=== PATIENT | male | born 1965 | race Caucasian/White ===

== ENCOUNTER 2021-05-21 21:12 | Inpatient (IN) | payer BC, SELFPAY ==
[2021-05-21] VITALS (61 sets, daily range): BP systolic 129–155; BP diastolic 72–99; PULSE 80–108; RESP 8–44; TEMP 36.8–41.3; O2SAT 88–94; BMI 29.7
--- NOTE | 2021-05-21 17:07 | PC.NURSE ---
Pt lying in bed with hob at 45 degree. Pt had no c/o pain or discomfort. Pts IV patent no redness or swelling noted IV fluids NS at 250cc/hr. Call light in reach.
[2021-05-21] MEDS: ondansetron 2 mg/ML SDV 2 mL 4 MG IVP (19:02)
[2021-05-21] MEDS: acetaminophen 325 mg Tablet 650 MG PO (19:31)
[2021-05-21 21:03] LABS: Glucose Point of Care 104 mg/dL (70-110)
--- NOTE | 2021-05-21 21:18 | XR_ITS ---
WS: [id number] Exam: XR chest 1V portable [id number] Date/Time of Exam: 05/21/2021 9:26 PM Reason For Exam: sob Comparison 01/13/2014. Mild groundglass infiltrate in the right lower lobe suspicious for pneumonia. Chronic interstitial ch anges noted bilaterally. The lungs are fully expanded. No pleural effusions. Normal cardiomediastinal silhouette and regional bony elements. Monitoring leads superimpose the chest. XR/XR chest 1V portable [id number] IMPRESSION: 1. Mild groundglass infiltrate in the right lower lobe suspicious for pneumonia . Chronic interstitial changes.
--- NOTE | 2021-05-21 21:20 | ECG_ITS ---
[facility] Test Date: 2021-05-21 Pat Name: Basilio Moody Department: Room: 107 Gender: Male Bpm Analyst: : 1965 Requested By: Geo Hall Order Number: [id number] Omi MD: Rashmi Liu M.D. Measurements Intervals [place] Rate: 86 P: 45 WV: 170 QRS: 80 QRSD: 96 T: 11 QT: 380 QTc: 457 Interpretive Statements SINUS RHYTHM POSSIBLE LEFT ATRIAL ENLARGEMENT [-0.1mV P WAVE IN V1/V2] SEPTAL MYOCARDIAL INFARCTION , PROBABLY OLD [40+ ms Q WAVE IN V1/V2] No previous ECG available for comparison Electronically Signed On 05-22-2021 21:53:57 GRAVEDIGGER by Rashmi Liu M.D. [id number]
--- NOTE | 2021-05-21 21:27 | P.HP_ITS ---
Providers/Chief Complaint Admitting Physician: Geo Hall MD Primary Care Provider: Thai Rangel MD Chief Complaint: covid 19 History of Present Illness Basilio Moody is a 56 year old male with a past medical history of insulin- dependent type 2 diabetes mellitus, CAD status post stenting in 2005,, hypertension, no history of CHF, no history of COPD, history of smoking, no h istory of stroke, who presents to [facility] due to fatigue, malaise, high fevers, nonproductive cough. Patient tells me that last Friday he started to feel fatigue, malaise, high fevers, nonproductive cough, he presented to his primary care provider and was given antibiotics and inhaler therapy. However continued to have symptomatology, tested positive for Covid on Friday, continue to have symptomatology, with high fevers, fatigue, malaise, also reported shortness of breath with exertion. Patient was scheduled to have a monoclonal infusion this afternoon, I was called to see patient in monoclonal infusion suite as he was not feeling well, was feeling nauseous. During my examination, he was complaining of fatigue, malaise, some nausea, no shortness of breath, feeling hot, he looks clinically dehydrated, so advised nursing staff that he should receive a 250 cc bolus of fluids. I was told that the fluid bolus could not be given in the monoclonal suite, so he would have to be moved to an outpatient bed, patient was moved to CSU, I reexamined patient in the CSU twice, as he was receiving 250 cc bolus, he was feels a bit better, had some nausea, was given Zofran, also had a temperature of 100.8. I was advised through nursing staff that patient continued to not feel well, I reexamined patient ate early in the evening, he tells me that he is not feeling well, ever nues to feel nauseous, he is having high fevers, temp as high as 106.8 axillary had forehead, was given 650 of Tylenol, fever has been broken down to 99.8 according to nursing staff. Denies any lip swelling, no tongue swelling, no new rashes, no headache, blurry vision, alert oriented x3, is at bedside, not requiring any oxygen. Blood pressure 155/81, pulse 94, respiratory 20, saturating in the high 90s. I discussed with yard warehouse worker my concerns, I feel patient would require rapid triage given my concerns for COVID-19 pneumonia, possible allergic reaction to monoclonal infusion. I was told that as patient was admitted under outpatient lab, was on the floors, he would have to be admitted under the hospitalist service. Thus I reexamined patient, I will have hospitalist service tonight take a look at labs, further imaging, continue to monitor patient clinically. Review of Systems Const: Reports: fever(s), chills, body aches, fatigue and malaise Eyes: Denies: change in vision or blurry vision ENMT: Reports: nasal congestion Card: Reports: lightheadedness; Denies: chest pain Resp: Reports: dyspnea and non-productive cough; Denies: productive cough or wheezing GI: Reports: nausea; Denies: abdominal pain, vomiting, hematemesis, diarrhea, constipation, hematochezia or melena : Denies: flank pain, difficulty urinating, dysuria or urinary frequency Musc: Denies: neck pain or back pain Skin/Breast: Denies: rash Neuro: Denies: headache(s), dizziness or vertigo Psych: Denies: anxiety or depression Endo: Denies: polyuria or polydipsia Medications/Allergies Home Medications Medication Instructions Recorded Confirmed Last Taken Type aspirin 325 mg PO DAILY 05/21/21 05/21/21 05/20/21 History atenolol 25 mg PO DAILY 05/21/21 05/21/21 05/20/21 History empagliflozin [Jardiance] 25 mg PO DAILY 05/21/21 05/21/21 05/21/21 History gemfibrozil 600 mg PO BID 05/21/21 05/21/21 05/21/21 History insulin glargine U-300 conc 60 unit SUBCUT DAILY 05/21/21 05/21/21 05/20/21 History [Toujeo SoloStar U-300 Insulin] insulin lispro [Humalog U-100 5 unit SUBCUT TID 05/21/21 05/21/21 05/20/21 History Insulin] losartan 25 mg PO DAILY 05/21/21 05/21/21 05/21/21 History metformin 1,000 mg PO BID 05/21/21 05/21/21 05/21/21 History Allergies Allergy/AdvReac Type Severity Reaction Status Date / Time isosorbide [From Imdur] Allergy ADR-Headach Verified 05/21/21 14:39 e PFSH Acute PFSH: Medical History (Updated 05/21/21 @ 21:38 by Geo Hall MD) Diabetes mellitus History of hypertension Surgical History (Updated 05/21/21 @ 21:36 by Geo Hall MD) History of cholecystectomy History of lumbar surgery Hx of heart artery stent Hx of hernia repair Family History (Updated 05/21/21 @ 21:37 by Geo Hall MD) Mother CAD (coronary artery disease) Social History (Updated 05/21/21 @ 21:37 by Geo Hall MD) Smoking and tobacco status: never smoked Alcohol intake: never Substance/Drug Use: never Vitals/I&O/Wt Last Vital Signs Temp 104.3 F H 05/21/21 19:34 Pulse 94 05/21/21 19:32 Resp 39 H 05/21/21 19:32 BP 155/81 05/21/21 19:32 Pulse Ox 88 L 05/21/21 19:32 05/21/21 05/21/21 05/21/21 06:59 14:59 22:59 Intake Total 110 / 110 Balance 110 / 110 Weight last 48 hrs Weight 102.058 kg Physical Exam Const: COMMON NORMALS: no acute distress and patient oriented x3 GENERAL APPEARANCE: cooperative and comfortable HENMT: COMMON NORMALS: normocephalic HEAD & SCALP: normocephalic Eye: COMMON NORMALS: Equal, round and reactive pupils present and EOMs intact bilaterally GENERAL EYE: appearance normal, both eyes and all related structures PUPIL: Yes Equal, round and reactive pupils present Neck/C-Spine: COMMON NORMALS: full ROM and no lymphadenopathy THYROID: Thyroid normal Lymph: LYMPHATIC: no lymphadenopathy noted Resp: COMMON NORMALS: normal respiratory effort, No retractions, No use of accessory muscles and clear to auscultation bilaterally AUSCULTATION: clear to auscultation bilaterally Cardio: COMMON NORMALS: no JVD, regular rate, regular rhythm, S1 normal heart sound present, S2 normal heart sound present, No gallops present (Cardio), No clicks present (Cardio) and No murmurs present (Cardio) RATE: regular rate RHYTHM: regular rhythm HEART SOUNDS: S1 normal heart sound present and S2 normal heart sound present GI: COMMON NORMALS: Normal to inspection, nondistended, normoactive bowel sounds present, Soft to palpation, non-tender and No hepatosplenomegaly present PALPATION: Yes Soft to palpation and Yes No hepatosplenomegaly present Extremity: COMMON NORMALS: normal to inspection, full ROM and no pedal edema Neuro: COMMON NORMALS: patient oriented x3, CN's II-XII intact bilaterally, moves all extremities and no focal motor deficits Psych: COMMON NORMALS: mental status grossly normal, Normal thought process present and cooperative THOUGHT PROCESS: Normal thought process present A&P Assessment and plan (1) COVID-19: -COVID-19 Plan: -Repeat Covid PCR, rapid antigen -We will obtain rapid flu -Blood cultures, sputum cultures, urine bacterial antigens -Decadron -For now hold off on remdesivir as not requiring oxygen, will await ABG, chest x-ray -Respiratory evaluation -Oxygen therapy as needed -Budesonide, ipratropium -CBC, CMP, pro-Shaheen, CRP, mag, Phos, ABG, chest x-ray, blood cultures -Tylenol and ibuprofen for fevers, ice packs -Monitor mentation closely Allergic reaction, possible allergic reaction monoclonal infusion, no lip swelling, no tongue swelling, no rash, but does have high-grade fevers, Decadron will suffice as above, Benadryl as needed, continue to monitor clinically Type 2 diabetes mellitus, Levemir 10 units at bedtime, low-dose sliding scale Dehydration, IV fluids Status: Acute (2) Febrile illness: Status: Acute (3) Allergic reaction: Status: Acute (4) Dehydration: Status: Acute (5) Diabetes mellitus: Status: Acute Attestations Medical Necessity Statement*: Patient course hospitalization, outpatient with observation, for COVID-19, dehydration, allergic reaction Coding Level of Care Code Acute Supervisor Poultry Farm for [facility] Diagnoses COVID-19 U07.1 Febrile illness R50.9 Allergic reaction T78.40XA Dehydration E86.0 Diabetes mellitus E11.9
[2021-05-21 22:14] LABS: Basophils % 0.2 %; Hematocrit 44.9 % (42.0-52.0); Hemoglobin 15.1 g/dL (11.7-16.6); Lymphocytes # 1.3 10^3/uL (0.8-4.8); Lymphocytes % 21.3 %; Mean Corpuscular HGB Conc 33.6 g/dL (30.0-36.0); Mean Corpuscular Hemoglobin 28.2 pg (28.0-34.0); Mean Corpuscular Volume 83.8 fl (80-94); Monocytes # 0.2 10^3/uL (0.2-0.9); Monocytes % 3.1 %; Neutrophils # 4.54 10^3/uL (1.8-7.7); Neutrophils % 75.1 %; Nucleated Red Blood Cells % 0 %; Platelet Count 202 10^3/cmm (130-400); Red Blood Count 5.36 10^6/uL (4.1-5.3); Red Cell Distribution Width 13.3 % (12.1-15.1); White Blood Count 6.1 10^3/uL (4.0-10.0)
[2021-05-21] MEDS: dexamethasone 10 mg/mL INJ 6 MG IVP (22:43)
[2021-05-21] MEDS: dextrose 5%-sod chloride 0.9% 1,000 ML 75 ML IV (22:43)
[2021-05-21] MEDS: azithromycin 500 MG in sodium chloride 0.9% 250 ML 250 MG IV (22:44)
[2021-05-21] MEDS: enoxaparin 40 mg/0.4 mL Syringe SUBCUT (22:44)
[2021-05-21] MEDS: cefTRIAXone 1,000 MG in sodium chloride 0.9% (plus) 50 ML 100 MG IV (22:45)
[2021-05-21 22:54] LABS: Lactic Sepsis W/Reflex 0.8 mmol/L (0.5-2.2)
[2021-05-21 23:06] LABS: NT Pro B Type Natriuretic Pept 14 pg/mL (0-125)
[2021-05-21 23:07] LABS: Troponin(5th) Baseline 9 ng/L (0-15)
[2021-05-21 23:08] LABS: Alanine Aminotransferase 20 U/L (0-41); Albumin Level 3.8 g/dL (3.5-5.2); Alkaline Phosphatase 58 IU/L (40-130); Anion Gap 21.4 (5-19); Aspartate Amino Transferase 29 U/L (0-40); Blood Urea Nitrogen 15 mg/dL (6-20); C Reactive Protein 37.6 mg/L (0.0-4.9); Calcium 8.2 mg/dL (8.5-10.5); Carbon Dioxide 17 mmol/L (22-29); Chloride 100 mmol/L (98-107); Globulin 3.1 g/dL (1.3-4.6); Glomerular Filtration Rate 116.7 mL/min (90-130); Glucose 98 mg/dL (65-115); Magnesium 1.8 mg/dL (1.7-2.3); Osmolality Calculated 281 mOsm/kg (285-295); Phosphorus 2.9 mg/dL (2.5-4.5); Potassium 3.4 mmol/L (3.5-5.1); Sodium 135 mmol/L (136-145); Total Bilirubin 0.4 mg/dL (0.15-1.2); Total Protein 6.9 g/dL (6.6-8.7)
[2021-05-21 23:13] LABS: D Dimer 0.54 ug/mIFEU (0-0.59)
--- NOTE | 2021-05-21 23:20 | ECG_ITS ---
[facility] Test Date: 2021-05-21 Pat Name: Basilio Moody Department: Room: 107 Gender: Male Bait Digger: : 1965 Requested By: Geo Hall Order Number: [id number] Omi MD: Rashmi Liu M.D. Measurements Intervals [place] Rate: 87 P: 44 MN: 153 QRS: 77 QRSD: 112 T: -6 QT: 393 QTc: 473 Interpretive Statements SINUS RHYTHM POSSIBLE LEFT ATRIAL ENLARGEMENT [-0.1mV P WAVE IN V1/V2] MODERATE INTRAVENTRICULAR CONDUCTION DELAY [110+ ms QRS DURATION] ABNORMAL QRS-T ANGLE [QRS-T AXIS DIFFERENCE > 60] Compared to ECG 05/21/2021 23:13:50 Intraventricular conduction delay now present Myocardial infarct finding no longer present Electronically Signed On 05-22-2021 22:01:05 ALUMINUM SIDING INSTALLER by Rashmi Liu M.D. [id number]
[2021-05-21 23:30] LABS: ABG PCO2 31.8 mmHg (35-45); ABG PH Result 7.41 (7.35-7.45); Arterial Blood Gas Hematocrit 46.5 % (42-52); Base Excess ABG -3.5 mmol/L (-2.0-2.0); Blood Gas Allen Test Pos; Blood Gas Sample Site Radial, right; Blood Gas Sample Type Arterial; HCO3 ABG 20.1 mmol/L (22-26); Oxygen Device ROOM AIR
[2021-05-21] MEDS: ipratropium-albuterol 3 mL Neb INHALATION (23:41)
[2021-05-21] MEDS: ibuprofen 200 mg Tablet 400 MG PO (23:48)
[2021-05-21 23:53] LABS: Procalcitonin 0.08 ng/mL (0-0.5)
[2021-05-22] VITALS (18 sets, daily range): BP systolic 119–132; BP diastolic 62–75; PULSE 60–94; RESP 16–28; TEMP 36.2–37.2; O2SAT 92–95
[2021-05-22 00:29] LABS: Troponin 5 2HR 8.09 ng/L (0-15)
[2021-05-22 00:33] LABS: Troponin 5 2HR Delta -0.91 ABS# (0-10)
--- NOTE | 2021-05-22 03:20 | ECG_ITS ---
[facility] Test Date: 2021-05-22 Pat Name: Basilio Moody Department: Room: 107 Gender: Male Communications Representative: : 1965 Requested By: Geo Hall Order Number: [id number] Omi MD: Rashmi Liu M.D. Measurements Intervals [place] Rate: 68 P: 46 WA: 180 QRS: 65 QRSD: 99 T: 32 QT: 419 QTc: 446 Interpretive Statements SINUS RHYTHM SEPTAL MYOCARDIAL INFARCTION , PROBABLY OLD [40+ ms Q WAVE IN V1/V2] Compared to ECG 05/21/2021 23:14:45 Myocardial infarct finding now present Intraventricular conduction delay no longer present Electronically Signed On 05-22-2021 22:05:42 HANDER IN by Rashmi Liu M.D. [id number]
[2021-05-22] MEDS: ipratropium-albuterol 3 mL Neb INHALATION ×5 (03:57→20:11)
[2021-05-22 05:58] LABS: Basophils % 0.2 %; Hematocrit 44.5 % (42.0-52.0); Hemoglobin 14.8 g/dL (11.7-16.6); Lymphocytes # 0.9 10^3/uL (0.8-4.8); Lymphocytes % 14.2 %; Mean Corpuscular HGB Conc 33.3 g/dL (30.0-36.0); Mean Corpuscular Hemoglobin 28.2 pg (28.0-34.0); Mean Corpuscular Volume 84.8 fl (80-94); Mean Platelet Volume 10.5 fL (7.4-10.4); Monocytes # 0.1 10^3/uL (0.2-0.9); Monocytes % 1.9 %; Neutrophils # 5.28 10^3/uL (1.8-7.7); Neutrophils % 83.2 %; Nucleated Red Blood Cells % 0 %; Platelet Count 206 10^3/cmm (130-400); Red Blood Count 5.25 10^6/uL (4.1-5.3); Red Cell Distribution Width 13.3 % (12.1-15.1); White Blood Count 6.3 10^3/uL (4.0-10.0)
[2021-05-22 06:23] LABS: D Dimer 0.56 ug/mIFEU (0-0.59)
[2021-05-22 06:37] LABS: Troponin 5 6HR 9.15 ng/L (0-15); Troponin 5 6HR Delta 0.15 ng/L (0-12)
[2021-05-22 06:43] LABS: Glucose Point of Care 245 mg/dL (70-110)
[2021-05-22 06:45] LABS: NT Pro B Type Natriuretic Pept 18 pg/mL (0-125); Procalcitonin 0.08 ng/mL (0-0.5)
[2021-05-22 06:56] LABS: Alanine Aminotransferase 20 U/L (0-41); Albumin Level 3.7 g/dL (3.5-5.2); Alkaline Phosphatase 56 IU/L (40-130); Aspartate Amino Transferase 28 U/L (0-40); Blood Urea Nitrogen 15 mg/dL (6-20); C Reactive Protein 42.8 mg/L (0.0-4.9); Calcium 8.1 mg/dL (8.5-10.5); Carbon Dioxide 18 mmol/L (22-29); Chloride 100 mmol/L (98-107); Creatine Phosphokinase 181 U/L (39-308); Globulin 2.9 g/dL (1.3-4.6); Glomerular Filtration Rate 116.7 mL/min (90-130); Glucose 160 mg/dL (65-115); Osmolality Calculated 286 mOsm/kg (285-295); Phosphorus 3.3 mg/dL (2.5-4.5); Sodium 136 mmol/L (136-145); Total Bilirubin 0.4 mg/dL (0.15-1.2); Total Protein 6.6 g/dL (6.6-8.7)
--- NOTE | 2021-05-22 07:26 | PC.NURSE ---
Frequent safety and comfort rounds continue. Orders and/or nursing care completed as indicated. Patient monitored for response to intervention and treatment for fever. Education provided includes not covering patient with blankets . Patient and/or workforce services representative verbalizes understanding.. Will continue to monitor.
[2021-05-22 07:39] LABS: Slide Review Slide Review Perform
[2021-05-22] MEDS: insulin lispro 100 unit/1 mL SUBCUT ×3 (08:08→17:02)
[2021-05-22] MEDS: ascorbic acid 500 mg Tablet PO ×2 (08:08→17:03)
[2021-05-22] MEDS: cholecalciferol (vitamin D3) 1,000 unit Tablet 1000 UNIT PO (08:08)
[2021-05-22] MEDS: zinc gluconate 50 mg Tablet PO (08:09)
[2021-05-22] MEDS: aspirin 81 mg EC Tablet PO (08:10)
[2021-05-22] MEDS: famotidine 20 mg Tablet PO ×2 (08:11→17:03)
[2021-05-22] MEDS: budesonide 0.5 mg/2 mL Neb INHALATION ×2 (08:28→20:11)
[2021-05-22] MEDS: remdesivir 200 MG in sodium chloride 0.9% (100 ml) 60 ML 100 MG IV (10:15)
[2021-05-22 11:48] LABS: Glucose Point of Care 237 mg/dL (70-110)
--- NOTE | 2021-05-22 12:18 | CT_ITS ---
WS: [id number] CTA OF THE CHEST WITH PULMONARY EMBOLISM PROTOCOL TECHNIQUE: High-resolution contrast enhanced CTA of the chest with coronal and sagittal reformatted i neetus with pulmonary embolism protocol. MIP images are also reviewed. CLINICAL INFORMATION: covid 19, hypoxia COMPARISON: None. DLP: 636.[address] scans at [facility] use at least one of these dose optimization techniques: automated e xposure control; mA and/or kV adjustment per patient size (includes targeted exams where dose is matc hed to clinical indication); or iterative reconstruction. FINDINGS: Proximal main pulmonary arteries are normal. Normal segmental and subsegmental pulmonary arteries. No evidence of pulmonary embolus. Distal most pulmonary arteries not well evaluated due to breathing ar tifact. Bilateral perihilar and lower lobe groundglass infiltrates compatible with COVID 19 pneumonia. Normal caliber thoracic aorta. Adrenal glands are normal. Cholecystectomy clips. Small esophageal hiatal he rnia. Reactive mediastinal and peribronchial lymph nodes. No axillary lymphadenopathy. Shallow inspir ation. CT/CT angio chest PE protcl [id number] IMPRESSION: 1. No evidence for pulmonary embolus. 2. Bilateral hazy groundglass infiltrates suspicious for COVID 19 pneumonia. S hallow inspiration. 3. Hepatomegaly. Cholecystectomy.
[2021-05-22] MEDS: atenolol 50 mg Tablet 25 MG PO (12:46)
[2021-05-22] MEDS: iohexol 350 mg/mL 100 mL Btl IV (14:44)
[2021-05-22 16:15] LABS: Coronavirus Test Green County Detected
[2021-05-22 16:25] LABS: Glucose Point of Care 218 mg/dL (70-110)
--- NOTE | 2021-05-22 17:45 | P.PN_ITS ---
Subjective Subjective: Interval history: Patient was seen this morning, he sitting up beside the bed, requiring about 2 L nasal cannula, fevers broke overnight, no nausea, no vomiting, appetite is improving Vitals/I&O/Wt Last Vital Signs Temp 98.6 F 05/22/21 16:00 Pulse 94 05/22/21 16:00 Resp 17 05/22/21 16:00 BP 120/75 05/22/21 16:00 Pulse Ox 94 05/22/21 16:00 05/22/21 05/22/21 05/22/21 06:59 14:59 22:59 Intake Total 600 / 710 1900 / 1900 Output Total 800 / 800 Balance -200 / -90 1900 / 1900 Weight last 48 hrs Weight 102.058 kg Physical Exam Const: COMMON NORMALS: no acute distress and patient oriented x3 Resp: COMMON NORMALS: normal respiratory effort, No retractions, No use of accessory muscles and clear to auscultation bilaterally AUSCULTATION: clear to auscultation bilaterally Cardio: COMMON NORMALS: regular rate, regular rhythm, S1 normal heart sound present and S2 normal heart sound present RATE: regular rate RHYTHM: regular rhythm HEART SOUNDS: S1 normal heart sound present and S2 normal heart sound present GI: COMMON NORMALS: Normal to inspection, nondistended, normoactive bowel sounds present, Soft to palpation and non-tender PALPATION: Yes Soft to palpation Extremity: COMMON NORMALS: no pedal edema Neuro: COMMON NORMALS: patient oriented x3 Psych: COMMON NORMALS: mental status grossly normal Data : 05/22/21 04:25 05/22/21 04:25 Micro: Microbiology 05/21/21 22:05 Blood Culture - Preliminary Blood SPECIMEN COLLECTED 05/21/21 22:00 Blood Culture - Preliminary Blood SPECIMEN COLLECTED A&P Assessment and plan (1) COVID-19: -COVID-19 pneumonia with hypoxia -With hypoxia Plan: -Blood cultures, sputum cultures, urine bacterial antigens -Decadron 2 of 10 -Remdesivir day 1 of 10 -Incentive spirometer, flutter valve -Ipratropium, budesonide -Oxygen therapy as needed -Tylenol and ibuprofen for fevers, ice packs -Full code -Lovenox for DVT prophylaxis Allergic reaction, possible allergic reaction monoclonal infusion, no lip swelling, no tongue swelling, no rash, but does have high-grade fevers, Decadron will suffice as above, Benadryl as needed, continue to monitor clinically Type 2 diabetes mellitus, Levemir 20 units at bedtime, low-dose sliding scale Dehydration, IV fluids discontinued Status: Acute (2) Febrile illness: Status: Acute (3) Allergic reaction: Status: Acute (4) Dehydration: Status: Acute (5) Diabetes mellitus: Status: Acute (6) Pneumonia due to COVID-19 virus: Status: Acute (7) Hypoxia: Status: Acute Attestations Medical Necessity Statement*: Patient requires hospitalization for COVID-19 pneumonia Coding Level of Care Code Acute Director Of Software Development for [facility] Diagnoses COVID-19 U07.1 Febrile illness R50.9 Allergic reaction T78.40XA Dehydration E86.0 Diabetes mellitus E11.9 Pneumonia due to COVID-19 virus U07.1; J12.82 Hypoxia R09.02
--- NOTE | 2021-05-22 20:00 | PC.NURSE ---
pt remained on 2 l nc o2 for shift.o2 sats remained low 90's.transfer orders received...but no beds available on med surg floor according to jason bajwa.
[2021-05-22 20:04] LABS: Glucose Point of Care 191 mg/dL (70-110)
[2021-05-22] MEDS: enoxaparin 40 mg/0.4 mL Syringe SUBCUT (22:38)
[2021-05-22] MEDS: dexamethasone 10 mg/mL INJ 6 MG IVP (22:39)
[2021-05-22] MEDS: cefTRIAXone 1,000 MG in sodium chloride 0.9% (plus) 50 ML 100 MG IV (22:40)
[2021-05-22] MEDS: azithromycin 500 MG in sodium chloride 0.9% 250 ML 250 MG IV (23:23)
--- NOTE | 2021-05-22 23:56 | PC.NURSE ---
Called report to med surg for patient's transfer, patient is currently in good condition, will transfer by wc on room air.
[2021-05-23] VITALS (9 sets, daily range): BP systolic 130–138; BP diastolic 67–71; PULSE 58–72; RESP 16–18; TEMP 36.3–36.7; O2SAT 90–96
[2021-05-23] MEDS: ipratropium-albuterol 3 mL Neb INHALATION ×3 (00:03→08:11)
--- NOTE | 2021-05-23 01:10 | PC.NURSE ---
patient to room 263 via wc on room air in good condition.
[2021-05-23 05:34] LABS: Basophils % 0.2 %; Hematocrit 42.4 % (42.0-52.0); Hemoglobin 13.9 g/dL (11.7-16.6); Lymphocytes # 0.9 10^3/uL (0.8-4.8); Lymphocytes % 15.8 %; Mean Corpuscular HGB Conc 32.8 g/dL (30.0-36.0); Mean Corpuscular Hemoglobin 27.9 pg (28.0-34.0); Mean Corpuscular Volume 85.1 fl (80-94); Mean Platelet Volume 10.3 fL (7.4-10.4); Monocytes # 0.2 10^3/uL (0.2-0.9); Monocytes % 2.7 %; Neutrophils # 4.47 10^3/uL (1.8-7.7); Neutrophils % 80.9 %; Nucleated Red Blood Cells % 0 %; Platelet Count 238 10^3/cmm (130-400); Red Blood Count 4.98 10^6/uL (4.1-5.3); Red Cell Distribution Width 13.3 % (12.1-15.1); White Blood Count 5.5 10^3/uL (4.0-10.0)
[2021-05-23 06:03] LABS: Alanine Aminotransferase 20 U/L (0-41); Albumin Level 3.6 g/dL (3.5-5.2); Alkaline Phosphatase 55 IU/L (40-130); Anion Gap 20.2 (5-19); Aspartate Amino Transferase 30 U/L (0-40); Blood Urea Nitrogen 19 mg/dL (6-20); C Reactive Protein 31.4 mg/L (0.0-4.9); Calcium 8.1 mg/dL (8.5-10.5); Carbon Dioxide 19 mmol/L (22-29); Chloride 102 mmol/L (98-107); Globulin 2.9 g/dL (1.3-4.6); Glomerular Filtration Rate 139.4 mL/min (90-130); Glucose 229 mg/dL (65-115); Magnesium 2.2 mg/dL (1.7-2.3); Osmolality Calculated 294 mOsm/kg (285-295); Phosphorus 2.8 mg/dL (2.5-4.5); Potassium 4.2 mmol/L (3.5-5.1); Sodium 137 mmol/L (136-145); Total Bilirubin 0.3 mg/dL (0.15-1.2); Total Protein 6.5 g/dL (6.6-8.7)
[2021-05-23 06:11] LABS: NT Pro B Type Natriuretic Pept 27 pg/mL (0-125); Procalcitonin 0.07 ng/mL (0-0.5)
[2021-05-23 06:22] LABS: Creatine Phosphokinase 232 U/L (39-308)
[2021-05-23 06:25] LABS: D Dimer 0.57 ug/mIFEU (0-0.59)
[2021-05-23] MEDS: remdesivir 100 MG in sodium chloride 0.9% (100 ml) 80 ML IV (06:42)
[2021-05-23 06:55] LABS: Glucose Point of Care 236 mg/dL (70-110)
[2021-05-23] MEDS: budesonide 0.5 mg/2 mL Neb INHALATION (08:11)
[2021-05-23] MEDS: insulin lispro 100 unit/1 mL SUBCUT ×2 (09:15→12:16)
[2021-05-23] MEDS: aspirin 81 mg EC Tablet PO (09:15)
[2021-05-23] MEDS: atenolol 50 mg Tablet 25 MG PO (09:15)
[2021-05-23] MEDS: zinc gluconate 50 mg Tablet PO (09:15)
[2021-05-23] MEDS: cholecalciferol (vitamin D3) 1,000 unit Tablet 1000 UNIT PO (09:15)
[2021-05-23] MEDS: famotidine 20 mg Tablet PO (09:16)
[2021-05-23] MEDS: ascorbic acid 500 mg Tablet PO (09:16)
[2021-05-23 11:28] LABS: Glucose Point of Care 299 mg/dL (70-110)
--- NOTE | 2021-05-23 12:48 | P.DS_ITS ---
Discharge Providers Date of Admission: 05/22/21 12:47 Date of Discharge: May 23, 2021 Attending Provider at Admission: Geo Hall MD Attending Provider at Discharge: Geo Hall MD Primary Care Provider: Thai Rangel MD Diagnoses at Discharge Discharge Diagnosis (1) COVID-19: Status: Acute (2) Febrile illness: Status: Acute (3) Allergic reaction: Status: Acute (4) Dehydration: Status: Acute (5) Diabetes mellitus: Status: Acute (6) Pneumonia due to COVID-19 virus: Status: Acute (7) Hypoxia: Status: Acute Reason for Visit Reason for Visit: covid 19 Hospital Course Hospital Course Basilio Moody is a 56 year old male with a past medical history of insulin- dependent type 2 diabetes mellitus, CAD status post stenting in 2005,, hypertension, no history of CHF, no history of COPD, history of smoking, no history of stroke, who presents to [facility] due to fatigue, malaise, high fevers, nonproductive cough. Patient tells me that last Friday he started to feel fatigue, malaise, high fevers, nonproductive cough, he presented to his primary care provider and was given antibiotics and inhaler therapy. However continued to have symptomatology, tested positive for Covid on Friday, continue to have symptomatology, with high fevers, fatigue, malaise, also reported shortness of breath with exertion. Patient was scheduled to have a monoclonal infusion this afternoon, I was called to see patient in monoclonal infusion suite as he was not feeling well Patient was admitted to [facility] for COVID-19 pneumonia, status post monoclonal infusion, had high-grade fevers, requiring up to 2 L nasal cannula, received broad-spectrum antibiotic therapy, 2 days of remdesivir and Decadron, clinically improved, down to room air, remaining afebrile, clinical ambulatory without any symptomatology. Patient did not require any oxygen on discharge. Patient be discharged on a prednisone burst, azithromycin, Advair, albuterol, vitamin C, vitamin D, zinc, instructions to socially isolate, self distance, facemask, hand wash. Patient was advised to follow-up with primary care provider about Covid and influenza vaccinations as soon as possible. In terms of his hypercoagulability prophylaxis for COVID-19, patient was advised of his increased risk of DVTs and pulmonary emboli, advised on warning signs and if so go to emergency room, continue his home aspirin, continue to be mobile Physical Exam Const: COMMON NORMALS: no acute distress and patient oriented x3 Resp: COMMON NORMALS: normal respiratory effort, No retractions, No use of accessory muscles and clear to auscultation bilaterally AUSCULTATION: clear to auscultation bilaterally Cardio: COMMON NORMALS: regular rate, regular rhythm, S1 normal heart sound present and S2 normal heart sound present RATE: regular rate RHYTHM: regular rhythm HEART SOUNDS: S1 normal heart sound present and S2 normal heart sound present GI: COMMON NORMALS: Normal to inspection, nondistended, normoactive bowel sounds present, Soft to palpation and non-tender PALPATION: Yes Soft to palpation Extremity: COMMON NORMALS: no pedal edema Neuro: COMMON NORMALS: patient oriented x3 Psych: COMMON NORMALS: mental status grossly normal Discharge Data Data Completed and Pending: Completed Studies During Hospitalization Category Date Time Status CT angio chest PE protcl 11077 Rout ine Cat Scan 05/22/21 12:18 Completed XR chest 1V fly ble 21321 Routine Exams 05/21/21 21:18 Completed Pending at discharge Category Date Time Status Bacterial Antigen Stat Lab 05/21/21 22:20 Ordered Blood Culture Sta t Lab 05/21/21 22:05 Results C Reactive Protei n AM LABS Lab 05/24/21 04:00 Ordered Complete Blood Co unt w/Auto AM LABS Lab 05/24/21 04:00 Ordered Comprehensive Met abolic Panel AM LA BS Lab 05/24/21 04:00 Ordered Creatine Phosphok inase AM LABS Lab 05/24/21 04:00 Ordered D Dimer AM LABS Lab 05/24/21 04:00 Ordered Erythrocyte Sedim entation Rate Stat Lab 05/21/21 04:25 Received Influenza A&B by IFA Routine Lab 05/21/21 23:37 Ordered Magnesium AM LABS Lab 05/24/21 04:00 Ordered NT Pro B Type Radha riuretic Pept QAM Lab 05/24/21 06:00 Ordered Phosphorus AM LAB S Lab 05/24/21 04:00 Ordered Procalcitonin AM LABS Lab 05/24/21 04:00 Ordered Sputum Culture an d Gram Stain Stat Lab 05/21/21 23:37 Received Labs from last 24 hours 05/23/21 05/23/21 05/23/21 11:16 06:44 04:25 WBC RBC Hgb Hct MCV MCH MCHC RDW Plt Count MPV Neut % (Auto) Lymph % (Auto) [place]ff[place] % (Auto) Eos % (Auto) Baso % (Auto) Neut # (Auto) Lymph # (Auto) [place] # (Auto) Eos # (Auto) Baso # (Auto) Nucleated RBC % (a uto) Nucleated RBCs # D-Dimer Sodium Potassium Chloride Carbon Dioxide Anion Gap BUN Creatinine GFR Calculation Glucose POC Glucose 299 H 236 H Calculated Osmolal ity Calcium Phosphorus Magnesium Total Bilirubin AST ALT Alkaline Phosphata se Creatine Kinase 232 C-Reactive Protein NT-Pro-B Natriuret Pep 27 Total Protein Albumin Globulin Procalcitonin 0.07 Nasal/Oral COVID-1 9 PCR 05/23/21 05/23/21 05/23/21 04:25 04:25 04:25 WBC 5.5 RBC 4.98 Hgb 13.9 Hct 42.4 MCV 85.1 MCH 27.9 L MCHC 32.8 RDW 13.3 Plt Count 238 MPV 10.3 Neut % (Auto) 80.9 Lymph % (Auto) 15.8 [place]ff[place] % (Auto) 2.7 Eos % (Auto) 0.0 Baso % (Auto) 0.2 Neut # (Auto) 4.47 Lymph # (Auto) 0.9 [place]duff[place] # (Auto) 0.2 Eos # (Auto) 0.0 Baso # (Auto) 0.0 Nucleated RBC % (a uto) 0 Nucleated RBCs # 0.0 D-Dimer 0.57 Sodium 137 Potassium 4.2 Chloride 102 Carbon Dioxide 19 L Anion Gap 20.2 H BUN 19 Creatinine 0.6 L GFR Calculation 139.4 H Glucose 229 H POC Glucose Calculated Osmolal ity 294 Calcium 8.1 L Phosphorus 2.8 Magnesium 2.2 Total Bilirubin 0.3 AST 30 ALT 20 Alkaline Phosphata se 55 Creatine Kinase C-Reactive Protein 31.4 H NT-Pro-B Natriuret Pep Total Protein 6.5 L Albumin 3.6 Globulin 2.9 Procalcitonin Nasal/Oral COVID-1 9 PCR 05/22/21 05/22/21 05/21/21 19:51 16:14 23:00 WBC RBC Hgb Hct MCV MCH MCHC RDW Plt Count MPV Neut % (Auto) Lymph % (Auto) [place] % (Auto) Eos % (Auto) Baso % (Auto) Neut # (Auto) Lymph # (Auto) [place] # (Auto) Eos # (Auto) Baso # (Auto) Nucleated RBC % (a uto) Nucleated RBCs # D-Dimer Sodium Potassium Chloride Carbon Dioxide Anion Gap BUN Creatinine GFR Calculation Glucose POC Glucose 191 H 218 H Calculated Osmolal ity Calcium Phosphorus Magnesium Total Bilirubin AST ALT Alkaline Phosphata se Creatine Kinase C-Reactive Protein NT-Pro-B Natriuret Pep Total Protein Albumin Globulin Procalcitonin Nasal/Oral COVID-1 9 PCR Detected H Vitals: Last Vital Signs Temp 97.4 F L 05/23/21 11:18 Pulse 60 05/23/21 11:18 Resp 16 05/23/21 11:18 BP 132/67 05/23/21 11:18 Pulse Ox 90 05/23/21 11:18 Discharge Plan Discharge Patient Disposition: Home Condition: Stable Prescriptions: New ascorbic acid (vitamin C) [Vitamin C] 500 mg Tablet 500 mg PO BID 30 Days Qty: 60 RF: 0 cholecalciferol (vitamin D3) 25 mcg (1,000 unit) Tablet 1,000 unit PO DAILY 30 Days Qty: 3 RF: 0 zinc gluconate 50 mg Tablet 50 mg PO DAILY 30 Days Qty: 30 RF: 0 albuterol sulfate 90 mcg/actuation HFA aerosol inhaler 1 inh inhalation Q6H PRN (Reason: shortness of breath or wheezing) Qty: 8.5 RF: 0 azithromycin 250 mg tablet 250 mg PO DAILY 3 Days Qty: 3 RF: 0 fluticasone propion-salmeterol [Advair Diskus] 100-50 mcg/dose blister with device 1 inh inhalation BID Qty: 60 RF: 0 prednisone 20 mg tablet 20 mg PO BID 5 Days Qty: 10 RF: 0 Continued aspirin 325 mg Tablet 325 mg PO DAILY RF: 0 atenolol 25 mg Tablet 25 mg PO DAILY RF: 0 gemfibrozil 600 mg Tablet 600 mg PO BID RF: 0 metformin 1,000 mg Tablet 1,000 mg PO BID RF: 0 losartan 25 mg Tablet 25 mg PO DAILY RF: 0 insulin lispro [Humalog U-100 Insulin] 100 unit/mL Solution 5 unit SUBCUT TID RF: 0 Jardiance 25 mg Tablet 25 mg PO DAILY RF: 0 Toujeo SoloStar U-300 Insulin 300 unit/mL (1.5 mL) Insulin Pen 60 unit SUBCUT DAILY RF: 0 Discharge Orders: Discharge Order (Routine); Ordered 05/23/21 Ordered By: Geo Hall Referrals: Thai Rangel MD [Primary Care Provider] - 06/11/21 9:30 am Discharge Diet: Diabetic Discharge Activity: Resume usual activity Patient Instructions: Opioid Safety Activity Restrictions/Additional Instructions: -Please continue to socially distance, self isolate, facemask, hand wash -Please discuss with primary care provider about getting Covid vaccination -Please discuss with primary care provider about flu vaccination -Please continue to be mobile -Monitor for signs of DVT or pulmonary embolism including calf pain, calf swelling, or sudden onset shortness of breath bloody cough if so go to emergency room -Tylenol for fevers -Steroids if needed for wheezing or shortness of breath -Use inhalers as prescribed, steroids as prescribed, monitor blood sugars closely Discharge Attestations Time Spent in Discharge Care*: less than 30 min Quality Metrics Clinical Quality Measures During this hospital stay, did patient experience: None Coding Level of Care Code Acute [facility] note Diagnoses COVID-19 U07.1 Febrile illness R50.9 Allergic reaction T78.40XA Dehydration E86.0 Diabetes mellitus E11.9 Pneumonia due to COVID-19 virus U07.1; J12.82 Hypoxia R09.02
[2021-05-25 17:57] LABS: Erythrocyte Sedimentation Rate 14 mm/hr (0-10)
== END 2021-05-23 15:33 | disposition home or self-care (01) | DRG 177 ==
LOC: CSU 21:19 → MEDSURG 05-23 09:55
PROVIDERS: Admitting Provider Family Medicine; PCP Family Medicine; Visit Provider Family Medicine
DX: U07.1 COVID-19 (principal); J12.82 Pneumonia due to coronavirus disease 2019; E11.9 Type 2 diabetes mellitus without complications; Z79.4 Long term (current) use of insulin; I25.10 Atherosclerotic heart disease of native coronary artery without angina pectoris; Z95.5 Presence of coronary angioplasty implant and graft; I10 Essential (primary) hypertension; E86.0 Dehydration; Z79.84 Long term (current) use of oral hypoglycemic drugs; T50.995A Adverse effect of other drugs, medicaments and biological substances, initial encounter
CPT/HCPCS: 36415; 36416; 36600; 71045; 71275; 80053; 82550; 82803; 82962; 83605; 83735; 83880; 84100; 84145; 84443; 84484; 85025; 85378; 85651; 86140; 87040; 87635; 93005; 94640; 96372; G0378; J0456; J0696; J1100; J1650; J1815; J2405; J7050; J7626; Q9967